=== PATIENT | female | born 1985 | race Caucasian/White ===

== ENCOUNTER 2021-07-24 19:53 | Emergency (ER) | payer OTHER, SELFPAY ==
--- NOTE | ~2021-07-24 | CT_ITS ---
CT HEAD WITHOUT IV CONTRAST CT MAXILLOFACIAL WITHOUT IV CONTRAST INDICATION: Pain status post trauma COMPARISON: None TECHNIQUE: Multidetector CT acquisitions of the head, maxillofacial region obtained without IV contrast. Multiplanar reformats were acquired and utilized for image interpretation. DLP: 760 and 622 mGy-cm FINDINGS: HEAD: There is no intracranial hemorrhage or extra-axial fluid collection. The ventricles are unremarkable without hydrocephalus. No midline shift or mass effect. Ny to white matter differentiation is diffusely maintained without evidence of an evolved acute territorial infarct. The basilar cisterns are preserved. No soft tissue or osseous abnormality. The mastoid air cells and paranasal sinuses are well-aerated. MAXILLOFACIAL: The mandible, maxilla, pterygoid plates, nasal bones, zygomatic arches, paranasal sinus umana, and bony orbits are intact. No acute osseous abnormality within the maxillofacial region. The paranasal sinuses and mastoid air cells remain well-aerated. The globes and extra-ocular musculature is intact. No significant soft tissue findings. CT/CT facial bones wo con IMPRESSION: 1. No acute intracranial abnormality. 2. No acute osseous abnormality within the maxillofacial region.
--- NOTE | ~2021-07-24 | CT_ITS ---
CT HEAD WITHOUT IV CONTRAST CT MAXILLOFACIAL WITHOUT IV CONTRAST INDICATION: Pain status post trauma COMPARISON: None TECHNIQUE: Multidetector CT acquisitions of the head, maxillofacial region obtained without IV contrast. Multiplanar reformats were acquired and utilized for image interpretation. DLP: 760 and 622 mGy-cm FINDINGS: HEAD: There is no intracranial hemorrhage or extra-axial fluid collection. The ventricles are unremarkable without hydrocephalus. No midline shift or mass effect. Ny to white matter differentiation is diffusely maintained without evidence of an evolved acute territorial infarct. The basilar cisterns are preserved. No soft tissue or osseous abnormality. The mastoid air cells and paranasal sinuses are well-aerated. MAXILLOFACIAL: The mandible, maxilla, pterygoid plates, nasal bones, zygomatic arches, paranasal sinus umana, and bony orbits are intact. No acute osseous abnormality within the maxillofacial region. The paranasal sinuses and mastoid air cells remain well-aerated. The globes and extra-ocular musculature is intact. No significant soft tissue findings. CT/CT head/brain wo con IMPRESSION: 1. No acute intracranial abnormality. 2. No acute osseous abnormality within the maxillofacial region.
[2021-07-24 19:57] VITALS: BP 129/84; PULSE 91; RESP 15; TEMP 36.6; O2SAT 99; BMI 31.8
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
[2021-07-24] MEDS: Ondansetron ODT 4 MG TAB.RAPDIS TRANSLINGU (21:24)
[2021-07-24] MEDS: Ibuprofen 600 MG TABLET PO (21:24)
[2021-07-24 21:25] LABS: UPreg QC Valid YES; Urine Pregnancy NEGATIVE (NEGATIVE)
== END 2021-07-24 22:58 | disposition home or self-care (01) ==
PROVIDERS: Emergency Provider Emergency Medicine
DX: S06.0X9A Concussion with loss of consciousness of unspecified duration, initial encounter (principal); S00.83XA Contusion of other part of head, initial encounter; Y29.XXXA Contact with blunt object, undetermined intent, initial encounter; Y93.9 Activity, unspecified; Y92.9 Unspecified place or not applicable; Y99.9 Unspecified external cause status; Z79.899 Other long term (current) drug therapy
CPT/HCPCS: 70450; 70486; 81025; 99283; 99284

== ENCOUNTER 2021-08-28 19:40 | Emergency (ER) | payer OTHER, SELFPAY ==
[2021-08-28 20:33] VITALS: BP 127/77; PULSE 82; RESP 16; TEMP 36.6; O2SAT 98; BMI 32.9
--- NOTE | 2021-08-28 21:37 | ED.BACK ---
HPI - Back Pain/Injury General Chief Complaint: Back Pain/Injury Stated Complaint: lower back pain Time Seen by Provider: 08/28/21 21:36 Source: patient Mode of arrival: ambulatory Limitations: no limitations History of Present Illness HPI Narrative: Patient with No significant past medical history noticed pain on the right lower back all of a sudden 2 days ago no injury no urinary symptoms no nausea or vomiting pain radiates to the upper back of the thigh no paresthesia no motor weakness Related Data Previous Rx's Medication Instructions Recorded cyclobenzaprine 10 mg tablet 10 mg PO Q8H #20 tabs 08/28/21 oxycodone-acetaminophen 5 mg-325 1 tab PO Q6H PRN pain #20 tabs 08/28/21 mg tablet (Percocet) Allergies Allergy/AdvReac Type Severity Reaction Status Date / Time No Known Allergies Allergy Verified 08/28/21 20:36 [No Known Allergies*] Review of Systems Review of Systems: Yes all other systems are reviewed and are negative [facility] Social History Social History Advance Directives: No Advance Directives Information Provided: No Physical Exam Vital Signs: Vital Signs: Last Vital Signs Temp 98 F 08/28/21 20:33 Pulse 82 08/28/21 20:33 Resp 16 08/28/21 20:33 BP 127/77 08/28/21 20:33 Pulse Ox 98 08/28/21 20:33 O2 Del Method 08/28/21 20:33 BMI result Body Mass Index 32.9 Appearance: Alert. Oriented X3. No acute distress. CVS: Normal heart rate and rhythm. Pulses normal. Respiratory: No respiratory distress. Equal air entry bilateral, no wheezing/rales/rhonchi Abdomen: Soft and nontender. Bowel sounds are present, no mass palpable, no CVA tenderness Skin: Skin warm and dry. Normal skin color. Normal skin turgor. Extremities: No lower extremity edema. No calf tenderness back: Right sciatic notch tenderness SLR negative no paresthesias no motor weakness, right lumbar muscle spasm Neuro: Oriented X 3. No motor deficit. No sensory deficit. MDM - Back Pain/Injury MDM Narrative Medical decision making narrative: Patient with right piriformis muscle syndrome patient advised to do piriformis exercises pain medication and muscle relaxants Discharge Plan Discharge Clinical Impression: Piriformis syndrome of right side Patient Disposition: Home, Self-Care Instructions: Piriformis Syndrome (ED) Additional Instructions: Do the exercise as advised for muscle spasm Pain medication and muscle relaxant as prescribed Follow with PCP if not better Prescriptions: New cyclobenzaprine 10 mg tablet 10 mg PO Q8H Qty: 20 0RF oxycodone-acetaminophen [Percocet] 5-325 mg tablet 1 tab PO Q6H PRN (Reason: pain) Qty: 20 0RF Rx Instructions: Partial Fill upon patient request. Stand Alone Forms: Work/School Release
[2021-08-28 22:04] VITALS: BP 120/65; PULSE 71; RESP 18; TEMP 36.8; O2SAT 98
[2021-08-28] MEDS: Cyclobenzaprine HCl 10 MG TABLET PO (22:44)
[2021-08-28] MEDS: oxyCODONE HCl Immed Release 5 MG TABLET 10 MG PO (22:44)
== END 2021-08-28 22:51 | disposition home or self-care (01) ==
PROVIDERS: Emergency Provider Internal Medicine; PCP Internal Medicine
DX: G57.01 Lesion of sciatic nerve, right lower limb (principal)
CPT/HCPCS: 99283; 99284

== ENCOUNTER 2021-11-02 12:10 | Emergency (ER) | payer OTHER, SELFPAY ==
--- NOTE | ~2021-11-02 | US_ITS ---
EXAMINATION: US OBSTETRICAL ULTRASOUND CLINICAL INFORMATION: Elevated hCG. Age 36. COMPARISON: None. LMP: Unknown. TECHNIQUE: Ultrasound of the maternal pelvis is performed using transabdominal and transvaginal transducers. Transvaginal imaging is performed due to inadequate visualization transabdominally. M-mode Doppler is also performed. FINDINGS: There is a single intrauterine gestational sac. There is a small subchorionic hematoma on the right measuring only 0.8 x 1.0 x 0.8 cm. There is questionable early pole 0.3 cm (6 week 0 days). No cardiac activity at this time. Large yolk sac 10 mm (inner to inner) versus normal early chorioamnionic separation. MSD (mean sac dimension): 1.58 cm (6 weeks 3 days +/- 4 days). MATERNAL ADNEXA: Both maternal ovaries are demonstrated. There is no maternal adnexal mass or pelvic ascites. The right maternal ovary measures 3.0 x 1.8 x 1.9 cm. The left maternal ovary measures 3.4 x 1.5 x 2.1 cm. US/US OB pelvic and transvaginal IMPRESSION: -Single intrauterine gestational sac, MSD 1.58 cm (6 weeks, 3 days size). Small subchorionic hematoma just under 1 cm. -Question early pole 0.3 cm (6 weeks 0 days size). No embryo cardiac activity noted at this time. Large yolk sac vs. normal early chorioamnionic separation. -Recommend follow-up beta hCG and follow-up ultrasound to confirm normal developing .
[2021-11-02 12:42] VITALS: BP 114/67; PULSE 70; RESP 16; TEMP 36.6; O2SAT 99; BMI 32.9
[2021-11-02 12:55] LABS: MANUAL DIFF FLAG NO
[2021-11-02 12:59] LABS: Basophils Absolute Auto 0.1 X10*3/uL (0.0-0.2); Basophils Percent Auto 0.7 % (0-2); Eosinophils Absolute Auto 0.3 X10*3/uL (0.0-0.4); Eosinophils Percent Auto 3.9 % (0-4); Hematocrit 37.9 % (37.0-47.0); Hemoglobin 13.2 g/dl (12.0-16.0); Imm Gran Abs Auto 0.01 X10*3/uL (0.00-0.03); Imm Gran Pct Auto 0.1 % (0.0-0.4); Lymphocytes Absolute Auto 2.1 X10*3/uL (1.2-4.9); Mean Corpuscular HGB Conc 34.8 g/dl (31.0-35.0); Mean Corpuscular Hemoglobin 32.9 pg (27.0-33.0); Mean Corpuscular Volume 94.5 fL (80.0-98.0); Mean Platelet Volume 11.3 fL (9.4-12.3); Monocytes Absolute Auto 0.5 X10*3/uL (0.1-1.2); Monocytes Percent Auto 6.2 % (2-11); Neutrophils Absolute Auto 4.4 x10*3/uL (2.0-8.3); Neutrophils Percent Auto 60.1 % (45-73); Platelet Count 191 X10*3/uL (160-400); Red Blood Count 4.01 X10*6/uL (4.20-5.50); Red Cell Distribution Width 11.6 % (11.0-16.0); White Blood Count 7.3 X10*3/uL (4.8-10.8)
[2021-11-02 13:19] LABS: HCG Quantitative 14266 mIU/mL
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
== END 2021-11-02 17:09 | disposition left against medical advice (07) ==
PROVIDERS: Emergency Provider Emergency Medicine
DX: O20.0 Threatened abortion (principal); Z3A.01 Less than 8 weeks gestation of pregnancy; O99.331 Smoking (tobacco) complicating pregnancy, first trimester; F17.200 Nicotine dependence, unspecified, uncomplicated
CPT/HCPCS: 36415; 76801; 76817; 84702; 85025; 86900; 86901; 99281; 99283; 99284

== ENCOUNTER 2021-11-02 17:35 | Emergency (ER) | payer OTHER, SELFPAY ==
[2021-11-02 18:18] VITALS: BP 127/80; PULSE 71; RESP 18; TEMP 36.7; O2SAT 98; BMI 31.8
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
[2021-11-02] MEDS: Acetaminophen 325 MG TABLET 650 MG PO (20:15)
== END 2021-11-02 20:50 | disposition home or self-care (01) ==
PROVIDERS: Emergency Provider Emergency Medicine
DX: O20.0 Threatened abortion (principal); Z3A.01 Less than 8 weeks gestation of pregnancy
CPT/HCPCS: 86900; 86901; 99283

== ENCOUNTER 2021-11-04 12:18 | Outpatient (REF) | payer OTHER, SELFPAY ==
[2021-11-04 13:13] LABS: Estimated Average Glucose 94 mg/dL; Hemoglobin A1c % 4.9 %
[2021-11-04 13:31] LABS: HCG Quantitative 14293 mIU/mL
[2021-11-05 03:03] LABS: CT PCR NOT DETECTED (Not Detect.); NG PCR NOT DETECTED (Not Detect.)
[2021-11-05 09:45] LABS: BV Int Neg Control Negative (Negative); BV Int Pos Control Positive (Positive)
== END 2021-11-04 12:19 | disposition home or self-care (01) ==
LOC: HO.LAB 12:18
PROVIDERS: Advanced Practice Midwife; Emergency Medicine; Visit Provider Obstetrics & Gynecology
DX: Z11.3 Encounter for screening for infections with a predominantly sexual mode of transmission (principal); O20.0 Threatened abortion
CPT/HCPCS: 36415; 83036; 84702; 87480; 87491; 87510; 87591; 87660; 99202

== ENCOUNTER 2021-11-07 14:33 | Outpatient (REF) | payer OTHER, SELFPAY ==
[2021-11-07 15:21] LABS: HCG Quantitative 8613 mIU/mL
== END 2021-11-07 14:34 | disposition home or self-care (01) ==
LOC: HO.LAB 14:33
PROVIDERS: Visit Provider Advanced Practice Midwife
DX: O20.0 Threatened abortion (principal)
CPT/HCPCS: 36415; 84702; 99212

== ENCOUNTER 2021-11-11 10:14 | Outpatient (REF) | payer OTHER, SELFPAY ==
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
== END 2021-11-11 10:15 | disposition home or self-care (01) ==
LOC: HO.US 10:14
PROVIDERS: Visit Provider Advanced Practice Midwife
DX: O20.0 Threatened abortion (principal)
CPT/HCPCS: 76801; 99212

== ENCOUNTER 2022-12-03 18:04 | Emergency (ER) | payer OTHER, SELFPAY ==
--- NOTE | ~2022-12-03 | XR_ITS ---
Examination: XR ankle RT 2V, XR foot RT 2V Indication: pain. fracture Comparison: No pertinent prior studies are currently available for comparison. Technique: 2 views of the right ankle and 3 views of the right foot obtained Findings: Diffuse soft tissue swelling is seen about the ankle. Underlying bony structures appear to be intact with no acute fracture or dislocation. Ankle mortise is normally aligned. No acute fracture or dislocation seen in the foot with minimal degenerative changes at the first MTP joint space. No radiopaque foreign body or soft tissue gas. XR/XR foot RT 2V Impression: Diffuse soft tissue swelling about the ankle but no acute fracture or dislocation.
--- NOTE | ~2022-12-03 | XR_ITS ---
Examination: XR ankle RT 2V, XR foot RT 2V Indication: pain. fracture Comparison: No pertinent prior studies are currently available for comparison. Technique: 2 views of the right ankle and 3 views of the right foot obtained Findings: Diffuse soft tissue swelling is seen about the ankle. Underlying bony structures appear to be intact with no acute fracture or dislocation. Ankle mortise is normally aligned. No acute fracture or dislocation seen in the foot with minimal degenerative changes at the first MTP joint space. No radiopaque foreign body or soft tissue gas. XR/XR ankle RT 2V Impression: Diffuse soft tissue swelling about the ankle but no acute fracture or dislocation.
[2022-12-03 18:17] VITALS: BP 113/73; PULSE 18; RESP 18; TEMP 36.6; O2SAT 98; BMI 35.4
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
[2022-12-03] MEDS: Acetaminophen 325 MG TABLET 975 MG PO (18:30)
[2022-12-03] MEDS: Ibuprofen 600 MG TABLET PO (20:45)
== END 2022-12-03 22:34 | disposition home or self-care (01) ==
PROVIDERS: Emergency Provider Emergency Medicine Emergency Medical Services
DX: S93.401A Sprain of unspecified ligament of right ankle, initial encounter (principal); V17.4XXA Pedal cycle driver injured in collision with fixed or stationary object in traffic accident, initial encounter; Y93.9 Activity, unspecified; Y92.410 Unspecified street and highway as the place of occurrence of the external cause; Y99.9 Unspecified external cause status; Z79.899 Other long term (current) drug therapy
CPT/HCPCS: 29515; 73600; 73620; 99284

== ENCOUNTER 2023-04-19 17:26 | Emergency (ER) | payer OTHER, SELFPAY ==
--- NOTE | ~2023-04-19 | XR_ITS ---
EXAMINATION: Thoracic and lumbar spine: CLINICAL INDICATIONS: Pain. COMPARISON: None. TECHNIQUE: 3 views thoracic spine. 3 views dorsal spine. FINDINGS: Dorsal spine: There is maintained thoracic kyphosis. There is minimal dextroscoliosis the vertebral heights, alignment and disc heights are normal. There is no visible acute fracture, lytic or sclerotic process seen. The soft tissues are normal. Lumbar spine: There is mild straightening of lumbar lordosis. The vertebral heights and alignment and disc heights are preserved. No visible acute fracture, dislocation or lytic process seen. No aggressive lytic or sclerotic process. Seen. SI joints are symmetrical and normal. XR/XR lumbar spine 2-3V IMPRESSION: 1. Minimal dextroscoliosis dorsal spine. No visible acute fracture, lytic or sclerotic process seen. 2. Mild straightening of lumbar lordosis likely spasm.
--- NOTE | ~2023-04-19 | XR_ITS ---
EXAMINATION: Thoracic and lumbar spine: CLINICAL INDICATIONS: Pain. COMPARISON: None. TECHNIQUE: 3 views thoracic spine. 3 views dorsal spine. FINDINGS: Dorsal spine: There is maintained thoracic kyphosis. There is minimal dextroscoliosis the vertebral heights, alignment and disc heights are normal. There is no visible acute fracture, lytic or sclerotic process seen. The soft tissues are normal. Lumbar spine: There is mild straightening of lumbar lordosis. The vertebral heights and alignment and disc heights are preserved. No visible acute fracture, dislocation or lytic process seen. No aggressive lytic or sclerotic process. Seen. SI joints are symmetrical and normal. XR/XR thoracic spine 2V IMPRESSION: 1. Minimal dextroscoliosis dorsal spine. No visible acute fracture, lytic or sclerotic process seen. 2. Mild straightening of lumbar lordosis likely spasm.
[2023-04-19 17:36] VITALS: BP 136/89; PULSE 83; RESP 18; TEMP 36.8; O2SAT 95; BMI 36.3
--- NOTE | 2023-04-19 17:37 | ED_ITS ---
HPI - General Adult General Chief complaint: Back Pain/Injury Stated complaint: fell, spine/ lower back pain Time Seen by Provider: 04/19/23 17:56 Source: patient Mode of arrival: ambulatory Limitations: no limitations History of Present Illness HPI narrative: Patient is a 37-year-old female who presents emergency department for evaluation after mechanical trip and fall. Reports that her puppy was running between her legs when she tripped falling backwards onto her buttock. She expresses pain to the right lower back radiating to her buttock. Denies fevers, chills, burning with micturition, urinary frequency/urgency/hesitancy, bladder or bowel dysfunction, numbness or tingling of the perineum or bilateral legs. Denies any recent surgical procedures, any known immune compromising conditions, personal history of cancer, or IV drug usage. Related Data Home Medications Medication Instructions Recorded Confirmed acetaminophen 325 mg capsule 650 mg PO Q6H PRN 11/04/21 11/04/21 (Tylenol) Previous Rx's Medication Instructions Recorded cyclobenzaprine 10 mg tablet 10 mg PO Q8H #20 tabs 08/28/21 clotrimazole 1 % vaginal cream 1 appful vaginal BEDTIME 7 days 11/07/21 (Clotrimazole-7) #45 grams metronidazole 500 mg tablet 500 mg PO BID 7 days #14 tabs 11/07/21 ibuprofen 600 mg tablet 600 mg PO Q8H PRN pain #20 tabs 12/03/22 cyclobenzaprine 10 mg tablet 10 mg PO TID PRN muscle spasm #20 04/19/23 tabs Allergies Allergy/AdvReac Type Severity Reaction Status Date / Time No Known Allergies Allergy Verified 11/11/21 11:14 [No Known Allergies*] Review of Systems Review of Systems: Yes all other systems are reviewed and are negative [facility] Past Medical History Attestation statement: The following information was validated with the patient. Source: old records reviewed Medical History Panic attack Depression Anxiety Surgical History H/O knee surgery Social History Social History Patient Tobacco Use Status: Current someday Tobacco user Substance Use Type: Marijuana Advance Directives: No Advance Directives Information Provided: No Physical Exam ED Vital Signs: Vital Signs - 24 hr 04/19/23 17:36 Temperature 98.3 F Pulse Rate 83 Respiratory Rate 18 Blood Pressure 136/89 Pulse Oximetry 95 Oxygen Delivery Method Room Air BMI result Body Mass Index 36.3 Appearance: Alert.?Oriented to person, place and time. No acute distress.?Normal affect. Eyes: Pupils equal, round and reactive to light.? ENT: Pharynx normal.?? Neck: Normal inspection.? Neck supple.?? CVS: Heart sounds normal. Normal heart rate and rhythm.? Pulses normal; bilateral radial pulses 2+, bilateral posterior tibial/dorsalis pedis pulses 2+. ? Respiratory: No respiratory distress.? Lung sounds clear to auscultation bilaterally?? Abdomen: Soft and non-tender. Normoactive bowel sounds. No pulsatile mass.?? Skin: Skin warm and dry.? Normal skin color.? Normal skin turgor.?? Extremities: No lower extremity edema.? No calf ttp? Back: + mild paraspinal muscular tenderness from right lumbar region to coccyx. No CVA tenderness. No midline spinal tenderness, step-off's, or deformity. Full ROM intact in bilateral lower extremities. Straight leg test positive on right; Straight leg test negative on left. No rashes, lesions, areas of induration or fluctuance, or signs of infection noted., Neuro: Moves all extremities spontaneously. 5/5 strength in hip extension/flexion, abduction, adduction. Sensation to light touch intact bilaterally. Patellar and Achilles reflex 2+ bilaterally. No ataxia, gait normal and steady.. No focal neuro deficits. Course Course Course Narrative: RME- 37-year-old female presents for evaluation of back pain after falling he reports just prior to arrival. Plan for x-rays. Medications Administered Discontinued Medications Generic Name Dose Route Start Last Admin Trade Name Freq PRN Reason Stop Dose Admin Cyclobenzaprine HCl 10 mg 04/19/23 18:14 04/19/23 18:30 Cyclobenzaprine Hcl 10 Mg Tablet PO 04/19/23 18:15 10 mg ONCE ONE Administration Ketorolac Tromethamine 30 mg 04/19/23 18:14 04/19/23 18:30 Ketorolac Tromethamine 30 Mg/Ml Vial IM 04/19/23 18:15 30 mg ONCE ONE Administration Ondansetron HCl 4 mg 04/19/23 18:14 04/19/23 18:29 Ondansetron Odt 4 Mg Tab.Za CARMONA 04/19/23 18:15 4 mg ONCE ONE Administration Medical Decision Making Medical Decision Making [facility] Narrative: Patient is a 37-year-old female who presents emergency department for evaluation right lower back pain s/p mechanical trip and fall as per HPI. Is notable tenderness to the right lumbar paraspinal muscle region positive straight leg test on the right pain radiating into the buttock. Extremities neurovascularly intact distally. Palpable step-offs or deformities. At this time suspect pain to be most consistent with muscular nature/contusion, XR obtained to exclude fracture/subluxation, and is without acute fracture subluxation, discussed with patient cannot completely exclude herniated disc. On neurological exam there are no deficits. Not consistent with spinal infection, epidural abscess, AAA, epidural abscess, or dissection. No high risk past medical history including incontinence, fever, immunosuppression, recent surgery or lumbar puncture, coagulopathy, significant trauma, recent unintentional weight loss, pulsatile mass, history of cancer, history of TB, history of IV drug use that would warrant MRI or CT. Not consistent with ectopic , pyelonephritis, urinary tract infection, renal calculi, pelvic infection, appendicitis, diverticulitis. On exam no concern for cauda equina syndrome. Plan for discharge home with prescription for cyclobenzaprine, and follow-up with primary care provider, and patient agreed with plan. Differential Diagnosis Differential Diagnoses: The differential diagnosis associated with the presentation includes ( see narrative above) Admission/Observation Consideration of admission/observation: Escalation of care including admission/observation considered ( see narrative above) Independent Interpretation I performed an independent interpretation of an: Plain X-Ray (A personally interpreted XR imaging and agree with radiologist impression) Radiology Impression Discussion of test interpretation with radiology: I have reviewed the radiologist's reading. Radiologist Impression: XR/XR thoracic spine 2V IMPRESSION: 1. Minimal dextroscoliosis dorsal spine. No visible acute fracture, lytic or sclerotic process seen. 2. Mild straightening of lumbar lordosis likely spasm. Independent Historian Clinical information obtained from an independent historian. History obtained from or confirmed by: Spouse (Present who confirms history) External Record Review External record reviewed: Outpatient record Prescription Management I considered prescription management with: Pain Medication Discharge Plan Discharge Clinical Impression: Strain of lumbar region Patient Disposition: Home, Self-Care Instructions: Acute Low Back Pain (ED), Lower Back Exercises (ED) Additional Instructions: You can take ibuprofen 200 mg, 3 tablets (600mg) every 6-8 hours as needed for pain, in addition to Tylenol 500 mg, 2 tablets (1,000mg) every 4-6 hours as needed for pain, but not to exceed 3 doses daily (3,000mg).? I have sent a prescription for cyclobenzaprine/Flexeril to your pharmacy. This is a muscle relaxant, may make you drowsy. You should not drive, drink alcohol, or work while taking this medication. Please contact your primary care provider to schedule a follow-up visit for persistent symptoms. Return back to emergency department any new worsening symptoms or concerns. Prescriptions: New cyclobenzaprine 10 mg tablet 10 mg PO TID PRN (Reason: muscle spasm) Qty: 20 0RF No Action metronidazole 500 mg tablet 500 mg PO BID 7 Days Qty: 14 0RF clotrimazole [Clotrimazole-7] 1 % cream 1 appful vaginal BEDTIME 7 Days Qty: 45 0RF cyclobenzaprine 10 mg tablet 10 mg PO Q8H Qty: 20 0RF ibuprofen 600 mg tablet 600 mg PO Q8H PRN (Reason: pain) Qty: 20 0RF acetaminophen [Tylenol] 325 mg capsule 650 mg PO Q6H PRN Referrals: Physician,Unknown J [Primary Care Provider] -
[2023-04-19] MEDS: Ondansetron ODT 4 MG TAB.RAPDIS TRANSLINGU (18:29)
[2023-04-19] MEDS: Ketorolac Tromethamine 30 MG/ML VIAL IM (18:30)
[2023-04-19] MEDS: Cyclobenzaprine HCl 10 MG TABLET PO (18:30)
[2023-04-19 19:35] VITALS: BP 134/88; PULSE 81; RESP 20; TEMP 36.6; O2SAT 98
== END 2023-04-19 19:51 | disposition home or self-care (01) ==
PROVIDERS: Emergency Provider Student in an Organized Health Care Education/Training Program
DX: S39.012A Strain of muscle, fascia and tendon of lower back, initial encounter (principal); W01.0XXA Fall on same level from slipping, tripping and stumbling without subsequent striking against object, initial encounter; Y93.89 Activity, other specified; Y92.039 Unspecified place in apartment as the place of occurrence of the external cause; Y99.9 Unspecified external cause status
CPT/HCPCS: 72070; 72100; 96372; 99283; 99284; J1885

== ENCOUNTER 2023-05-24 16:28 | Emergency (ER) | payer SELFPAY ==
--- NOTE | ~2023-05-24 | US_ITS ---
EXAMINATION: US OBSTETRICAL ULTRASOUND CLINICAL INFORMATION: Positive test COMPARISON: None available. LMP: 04/11/2023. Gestational age by maternal dates is 6 weeks 1 day. Estimated date of delivery by maternal dates is 01/16/2024. TECHNIQUE: Transabdominal ultrasound was performed FINDINGS: There is a single intrauterine gestational sac with visible yolk sac, embryo/fetus, and cardiac activity. There is no significant subchorionic hemorrhage or hematoma. HR: 150 beats per minute. CRL (crown rump length): 0.98 cm (7 weeks 1 day +/- 4 days). ALTHEA (estimated date of delivery): 01/09/2024 +/- 4 days. MATERNAL ADNEXA: The right maternal ovary measures 2.8 x 2.8 x 1.7 cm. There is a 1.6 x 1.1 x 1.0 cm corpus luteum cyst The left maternal ovary measures 2.1 x 2.0 x 1.9 cm. There is no significant maternal adnexal mass. No maternal pelvic ascites. US/US OB <= 14 weeks fetus IMPRESSION: 1. Single intrauterine gestation with ultrasound gestational age of 7 weeks 1 day +/- 4 days. 2. Estimated date of delivery is 01/09/2024 +/- 4 days. 3. No maternal adnexal mass or pelvic ascites.
[2023-05-24 16:55] VITALS: BP 127/81; PULSE 87; RESP 16; TEMP 36.2; O2SAT 100; BMI 38.5
--- NOTE | 2023-05-24 17:03 | ED_ITS ---
HPI - General Chief complaint: Vaginal Bleeding Stated complaint: ?miscarriage,pressure, vaginal spotting Time Seen by Provider: 05/24/23 20:45 Source: patient Mode of arrival: ambulatory Limitations: no limitations History of Present Illness HPI Narrative: Patient comes to the emergency room stating that she is , and today complaining of pinkish mucousy vaginal discharge and lower abdominal pressure. Patient denies URI or UTI symptoms. Patient denies bright red blood vaginal bleeding. Patient is currently . Related Data Home Medications Medication Instructions Recorded Confirmed acetaminophen 325 mg capsule 650 mg PO Q6H PRN 11/04/21 11/04/21 (Tylenol) Previous Rx's Medication Instructions Recorded cyclobenzaprine 10 mg tablet 10 mg PO Q8H #20 tabs 08/28/21 clotrimazole 1 % vaginal cream 1 appful vaginal BEDTIME 7 days 11/07/21 (Clotrimazole-7) #45 grams metronidazole 500 mg tablet 500 mg PO BID 7 days #14 tabs 11/07/21 ibuprofen 600 mg tablet 600 mg PO Q8H PRN pain #20 tabs 12/03/22 cyclobenzaprine 10 mg tablet 10 mg PO TID PRN muscle spasm #20 04/19/23 tabs Allergies Allergy/AdvReac Type Severity Reaction Status Date / Time No Known Allergies Allergy Verified 11/11/21 11:14 [No Known Allergies*] Review of Systems 2 Review of Systems: Constitutional : No Weight loss, No Fever, No Chills, No Night Sweats, No Fatigue, No Malaise ENT/Mouth : No Hearing loss, No Ear Pain, No Nasal Congestion, No Sinus Pain, No Hoarseness, No sore throat, No Rhinorrhea, No Swallowing Difficulty Eyes: No Eye Pain, No Swelling, No Redness, No Foreign Body, No Discharge, No Vision Changes Cardiovascular : No Chest Pain, No SOB, No Dyspnea on Exertion, No Orthopnea, No Edema, No Palpitations Respiratory : No Cough, No Sputum, No Wheezing, No Smoke Exposure, No Dyspnea Gastrointestinal : No Nausea, No Vomiting, No Diarrhea, No Constipation, No abdominal Pain, No Hematochezia, No Melena Genitourinary : Complaining of pelvic pressure, pinkish vaginal discharge, No Dysuria, No Urinary Frequency, No Hematuria, No Urinary Incontinence, No Urgency, No Flank Pain, No Urinary Flow Changes, No Hesitancy Musculoskeletal : No joint pain, No Myalgias, No Joint Swelling Skin : No Skin Lesions, No rash Neuro : No Weakness, No Numbness, No Paresthesias, No Loss of Consciousness, No Dizziness, No Headache Psych : No Anxiety/Panic, No Depression, No SI/HI/AH/VH, No Social Issues, Heme/Lymph: No Bruising, No Bleeding,No Lymphadenopathy Endocrine : No Polyuria, No Polydipsia, No Temperature Intolerance [facility] Past Medical History Medical History Panic attack Depression Anxiety Surgical History H/O knee surgery Social History Social History Patient Tobacco Use Status: Current someday Tobacco user Substance Use Type: Marijuana Advance Directives: No Advance Directives Information Provided: No Physical Exam 2 Vital Signs: Vital Signs: Last Vital Signs Temp 98.9 F 05/24/23 21:58 Pulse 74 05/24/23 21:58 Resp 20 05/24/23 21:58 BP 119/66 05/24/23 21:58 Pulse Ox 99 05/24/23 21:58 O2 Del Method Room Air 05/24/23 21:58 BMI result Body Mass Index 38.5 Const: Other: Appearance: Alert. Oriented X3. No acute distress. Eyes: Pupils equal, round and reactive to light. ENT: Pharynx normal. Neck: Normal inspection. Neck supple. No lymph nodes noted. No crepitus CVS: Normal heart rate and rhythm. Pulses normal. Normal S1 and S2 Respiratory: No respiratory distress. Breath sounds normal. No Wheezing. No rales Abdomen: Soft and nontender. No rigidity. No distention. : Cervix is closed, no obvious discharge, no blood present at all Skin: Skin warm and dry. Normal skin color. Normal skin turgor. Extremities: No lower extremity edema. No Lacerations. No Rash Neuro: Oriented X 3. No motor deficit. No sensory deficit. Moving all extremities. No slurred speech. CN 2 through 12 grossly intact Psych: calm, cooperative, normal affect Course Course Course Narrative: This is a rapid medical exam: Additional HPI, ROS, PE not included below will be deferred to primary provider. Patient is a 39-year-old presenting to the ED with complaint of light pink mucous-like vaginal bleeding, states is small amount, and lower abdominal cramping which started today. LMP started 04/01/23. Was feeling unwell Sunday so she took a test which was positive. States symptoms feel like previous miscarriages. Plan: labs, UA, u/s Medical Decision Making Medical Decision Making [facility] Narrative: -I discussed the labs with the patient. My interpretation of labs, hematology and chemistry within normal limits, hCG 73,858. Urinalysis negative for UTI -my interpretation of ultrasound: Intrauterine present -patient will follow-up with her OB Gyne, patient would like to follow-up with Dr. Monson's group -patient has history of recurrent miscarriages for unclear reason. I discussed with the patient that it may be worth speaking with her primary care physician and getting tested for clotting disorders such as factor 5 Leiden mutation, prothrombin gene mutation, antiphospholipid syndrome, protein C and S deficiencies -I asked the patient what she has been taking for pain at home, patient has been taking Excedrin. I discussed with the patient that exiting contains aspirin and is contraindicated in . I discussed with the patient that the only acceptable [id number] medication during is Tylenol/acetaminophen -swabs have been sent for STD check Differential Diagnosis Differential Diagnoses: The differential diagnosis associated with the presentation includes (Threatened , UTI, ectopic ) Admission/Observation Consideration of admission/observation: Escalation of care including admission/observation considered (Given patient's initial presentation and symptoms, admission/transfer was considered) Lab Data [facility] Lab Attestation statement: I reviewed the patient's lab results. 05/24/23 19:27 05/24/23 19:27 Labs: Lab Results 05/24/23 05/24/23 Range/Units 19:27 21:37 WBC 11.0 H (4.8-10.8) X10*3/uL RBC 4.37 (4.20-5.50) X10*6/uL Hgb 13.6 (12.0-16.0) g/dl Hct 39.7 (37.0-47.0) % MCV 90.8 (80.0-98.0) fL MCH 31.1 (27.0-33.0) pg MCHC 34.3 (31.0-35.0) g/dl RDW 12.8 (11.0-16.0) % Plt Count 228 (160-400) X10*3/uL MPV 10.7 (9.4-12.3) fL Immature Gran % (Auto) 0.3 (0.0-0.4) % Neut % (Auto) 64.4 (45-73) % Lymph % (Auto) 26.4 (20-40) % Dunn % (Auto) 5.1 (2-11) % Eos % (Auto) 3.2 (0-4) % Baso % (Auto) 0.6 (0-2) % Lymph # (Auto) 2.9 (1.2-4.9) X10*3/uL Dunn # (Auto) 0.6 (0.1-1.2) X10*3/uL Eos # (Auto) 0.4 (0.0-0.4) X10*3/uL Baso # (Auto) 0.1 (0.0-0.2) X10*3/uL Abs Immat Gran (auto) 0.03 (0.00-0.03) X10*3/uL Absolute Neuts (auto) 7.1 (2.0-8.3) x10*3/uL Absolute Nucleated RBC 0.000 (0.0-0.012) X10*3/uL Nucleated RBC % (auto) 0.0 (0.0-0.2) /100WBC PT 12.1 (11.1-13.3) SEC INR 1.0 (0.9-1.1) Sodium 139 (135-145) mmol/L Potassium 4.2 (3.3-5.1) mmol/L Chloride 106 (96-108) mmol/L Carbon Dioxide 23 (22-29) mmol/L Anion Gap 14 (12-20) BUN 10 (9-16) mg/dL Creatinine 0.71 (0.5-1.4) mg/dL Estim Creat Clear Calc 123.8 Estimated GFR > 60 Random Glucose 82 (60-115) mg/dL Calcium 9.3 (8.4-10.2) mg/dL Total Bilirubin 0.3 (0.0-1.0) mg/dL AST 18 (5-31) U/L ALT 14 (0-31) U/L Alkaline Phosphatase 80 (39-117) U/L Total Protein 7.3 (6.5-8.0) g/dL Albumin 4.0 (3.5-5.0) g/dL Beta HCG, Quant 18035 mIU/mL Urine Color Yellow Urine Appearance Clear Urine pH 6.5 (5.0-9.0) Ur Specific [place] 1.010 (1.005-1.025) Urine Protein Negative (Neg-Trace) mg/dL Urine Glucose (UA) Negative (Negative) mg/dL Urine Ketones Negative (Negative) mg/dL Urine Blood Negative (Negative) Urine Nitrite Negative (Negative) Ur Leukocyte Esterase Negative (Negative) Blood Type A Positive Independent Interpretation I performed an independent interpretation of an: Ultrasound Radiology Impression Discussion of test interpretation with radiology: I have reviewed the radiologist's reading. Radiologist Impression: LMP: 04/11/2023. Gestational age by maternal dates is 6 weeks 1 day. Estimated date of delivery by maternal dates is 01/16/2024. TECHNIQUE: Transabdominal ultrasound was performed FINDINGS: There is a single intrauterine gestational sac with visible yolk sac, embryo/fetus, and cardiac activity. There is no significant subchorionic hemorrhage or hematoma. HR: 150 beats per minute. CRL (crown rump length): 0.98 cm (7 weeks 1 day +/- 4 days). ALTHEA (estimated date of delivery): 01/09/2024 +/- 4 days. MATERNAL ADNEXA: The right maternal ovary measures 2.8 x 2.8 x 1.7 cm. There is a 1.6 x 1.1 x 1.0 cm corpus luteum cyst The left maternal ovary measures 2.1 x 2.0 x 1.9 cm. There is no significant maternal adnexal mass. No maternal pelvic ascites. US/US OB <= 14 weeks fetus IMPRESSION: 1. Single intrauterine gestation with ultrasound gestational age of 7 weeks 1 day +/- 4 days. 2. Estimated date of delivery is 01/09/2024 +/- 4 days. 3. No maternal adnexal mass or pelvic ascites. Critical Care Time Critical Care Time Critical Care Time: Yes Total Critical Care Time: 45 Attestation: I have personally provided critical care time. Time includes review of lab data, radiology results, discussion with consultants, and monitoring for potential decompensation. Intervention performed as documented. Discharge Plan Discharge Clinical Impression: Threatened Patient Disposition: Home, Self-Care Instructions: Threatened Miscarriage (ED) Additional Instructions: Please follow-up with your primary care physician tomorrow. If you have any worsening or new symptoms, please return to the emergency room or call 911. If you have pain, do not take any pain medication other than Tylenol/acetaminophen. Prescriptions: No Action metronidazole 500 mg tablet 500 mg PO BID 7 Days Qty: 14 0RF clotrimazole [Clotrimazole-7] 1 % cream 1 appful vaginal BEDTIME 7 Days Qty: 45 0RF cyclobenzaprine 10 mg tablet 10 mg PO Q8H Qty: 20 0RF ibuprofen 600 mg tablet 600 mg PO Q8H PRN (Reason: pain) Qty: 20 0RF cyclobenzaprine 10 mg tablet 10 mg PO TID PRN (Reason: muscle spasm) Qty: 20 0RF acetaminophen [Tylenol] 325 mg capsule 650 mg PO Q6H PRN Referrals: Terry Monson MD [Physician] - 05/25/23
[2023-05-24 19:32] LABS: MANUAL DIFF FLAG NO
[2023-05-24 19:33] LABS: Basophils Absolute Auto 0.1 X10*3/uL (0.0-0.2); Basophils Percent Auto 0.6 % (0-2); Eosinophils Absolute Auto 0.4 X10*3/uL (0.0-0.4); Eosinophils Percent Auto 3.2 % (0-4); Hematocrit 39.7 % (37.0-47.0); Hemoglobin 13.6 g/dl (12.0-16.0); Imm Gran Abs Auto 0.03 X10*3/uL (0.00-0.03); Imm Gran Pct Auto 0.3 % (0.0-0.4); Lymphocytes Absolute Auto 2.9 X10*3/uL (1.2-4.9); Lymphocytes Percent Auto 26.4 % (20-40); Mean Corpuscular HGB Conc 34.3 g/dl (31.0-35.0); Mean Corpuscular Hemoglobin 31.1 pg (27.0-33.0); Mean Corpuscular Volume 90.8 fL (80.0-98.0); Mean Platelet Volume 10.7 fL (9.4-12.3); Monocytes Absolute Auto 0.6 X10*3/uL (0.1-1.2); Monocytes Percent Auto 5.1 % (2-11); Neutrophils Absolute Auto 7.1 x10*3/uL (2.0-8.3); Neutrophils Percent Auto 64.4 % (45-73); Platelet Count 228 X10*3/uL (160-400); Red Blood Count 4.37 X10*6/uL (4.20-5.50); Red Cell Distribution Width 12.8 % (11.0-16.0)
[2023-05-24 19:38] LABS: Prothrombin Time 12.1 SEC (11.1-13.3)
[2023-05-24 19:49] LABS: Alanine Aminotransferase 14 U/L (0-31); Alkaline Phosphatase 80 U/L (39-117); Anion Gap 14 (12-20); Aspartate Amino Transferase 18 U/L (5-31); Bilirubin Total 0.3 mg/dL (0.0-1.0); Blood Urea Nitrogen 10 mg/dL (9-16); Calcium 9.3 mg/dL (8.4-10.2); Carbon Dioxide 23 mmol/L (22-29); Chloride 106 mmol/L (96-108); Creatinine Clr Calc Pharmacy 123.8; Estimated Glomerular Filt Rate > 60; Glucose Random 82 mg/dL (60-115); Potassium 4.2 mmol/L (3.3-5.1); Sodium 139 mmol/L (135-145); Total Protein 7.3 g/dL (6.5-8.0)
[2023-05-24 21:46] LABS: Appearance Urine Clear; Color Urine Yellow; Glucose Urine UA Negative (Negative); Leukocyte Esterase Urine Negative (Negative); Nitrite Urine Negative (Negative); PH 6.5 (5.0-9.0); Urine Blood Negative (Negative); Urine Ketones Negative (Negative); Urine Protein Negative (Neg-Trace)
[2023-05-24 21:58] VITALS: BP 119/66; PULSE 74; RESP 20; TEMP 37.2; O2SAT 99
[2023-05-25 04:02] LABS: CT PCR NOT DETECTED (Not Detect.); NG PCR NOT DETECTED (Not Detect.)
[2023-05-25 09:51] LABS: BV Int Neg Control Negative (Negative); BV Int Pos Control Positive (Positive)
== END 2023-05-24 22:39 | disposition home or self-care (01) ==
PROVIDERS: Registered Nurse Emergency; Emergency Provider Emergency Medicine
DX: O20.0 Threatened abortion (principal); Z3A.14 14 weeks gestation of pregnancy; Z79.899 Other long term (current) drug therapy
CPT/HCPCS: 0353U; 36415; 76801; 80053; 81003; 84702; 85025; 85610; 86900; 86901; 87480; 87510; 87660; 99283; 99284

== ENCOUNTER 2023-06-22 09:03 | Outpatient (AMB) | payer MEDICAID, SELFPAY ==
[2023-06-22 09:08] VITALS: BP 110/62; BMI 38.1
--- NOTE | 2023-06-22 09:08 | MHC.OFFVIS ---
Intake Vital Signs 06/22/23 09:08 Height 5 ft 3 in Weight 215 lb BMI 38.1 BP 110/62 Intake Visit Reasons: consult Physician Gynecologist Required: No Information Interpreted: clinical only Diet Technician Registered: Diet Technician Registered Present Allergies No Known Allergies [No Known Allergies*] Allergy (Verified 06/22/23 09:09) Medication List - Last Reconciled 06/22/23 by Daphne Uriostegui CNM acetaminophen (Tylenol) 650 mg PO Q6H PRN cholecalciferol (vitamin D3) 25 mcg PO DAILY Is last menstrual period known: Yes (04/06/23) Do you need a note to return to daycare/school/sports/work: No HPI consult HPI Details Patient is here as a consult visit. She discovered her at home and had some spotting in the beginning of May so she was seen in the emergency room on May 23 and had a positive test there and had the confirmed with an ultrasound that said she was 7 weeks and 1 day any ALTHEA of 1023 and a quant in the 78 thousands. She did not have insurance to cover a scheduled follow-up visit so it could not be scheduled until now. She is 37 years old she has had 3 vaginal births the 1st 1 took a long time to get in labor postdates but the other 2 were spontaneous and she delivered normally and she does not remember having any meds and she does not remember having any hypertension or diabetes either. She is overweight. She is now 37 years old about to be 38. This is her 1st for this boyfriend and they are both very happy about it she is not enjoying the symptoms of tender breasts fatigue and nausea and hypersensitivity to smells. 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 During this visit I discussed her dating of the and that now she is about 11 weeks of and she is at somewhat increased risk being 37 years old and overweight. Discussed that towards the end of the she would need extra visits with nonstress tests and ultrasounds to assess well-being. Discussed that while she may have the option of starting care with us because she does have some in increased risk factors she may very well end up needing to be transferred anyway for care to [facility] so her other option would be to start care at [facility] and continue with all of her care in the same place. She thinks that she received care for 2 of her children at [place] and 1 of them through 1 of the [facility] practices from start to finish. So she may check that 1 out I gave her the entire list to call and see who accepts her insurance and try and make an appointment. In the meantime because she is now about 11 weeks and we were able to auscultate heart appropriately today, I am ordering her nuchal translucency ultrasound to be done next week and a panorama blood test because she is over 35 and it increased risk she is interested in finding out the gender, as is he. I have also ordered her vitamins and discussed that because she is over 35 and has some other risk factors we would recommend starting on baby aspirin 2 tablets a day for the duration of the starting at 12 weeks. She will have a tele visit with me after the nuchal translucency ultrasound but will sign for records released today so that this can expedite sending of all records pertaining to her to what ever practice at [facility] she ends up going to and there is no delay. Additionally she does not think she is Rh negative. As well she says she has a history of anxiety and depression and was on medication for both and she did see her primary care provider in the [facility] system and he took her off the medication for depression and limited the dosage of the medicine for anxiety to a p.r.n. use only in the case of a panic attack.. She does not know the name of the medication exactly but will look it up and have it available wherever she seeks care for the entire . In addition she says her primary care provider put in a referral for counseling for her and she has already had an intake over the phone. I applauded her being proactive about this and encouraged her to keep in contact with the counselor throughout the as often it can be when someone finds they are most need. And it is great to have a lifeline. Reviewed that for all emergencies she would need to be seen at [facility]. For now she is going to be seeking care at [facility] and in the interim we will arrange for the nuchal translucency at [facility] and the panoramic with blood work paperwork paperwork to be filled out at the [facility] OBGYN office in the very near future. [facility] Medical History Panic attack Depression Anxiety Surgical History H/O knee surgery Social History Patient Tobacco Use Status: Current someday Tobacco user Substance Use Type: Marijuana Female Reproductive History Menstrual Age of Menarche: 17 Duration of menses: 3-5 days control method: none Total pregnancies: 6 Full term: 3 Physical Exam Vital Signs: Last Vital Signs BP 110/62 06/22/23 09:08 BMI result Body Mass Index 38.1 Const Other: FHT at symphysis pubis audible. Nutritional Appearance: obese Results AMB Test Urine AMB Test Urine Positive Last Edit by Sukhdev Aviles CMA on 06/22/23 09:27 Results Reviewed Results Reviewed: Patient: Yony Cannon MR#: [id number] : 1985 Acct:[id number] Age/Sex: 37 / F ADM Date: 05/24/23 Loc: HO.ED Attending Dr: Ordering Physician: Nalini Cline NP Date of Service: 05/24/23 Procedure(s): US OB <= 14 weeks fetus Accession Number(s): [id number] cc: Physician,Unknown ; Nalini Cline NP~ EXAMINATION: US OBSTETRICAL ULTRASOUND CLINICAL INFORMATION: Positive test COMPARISON: None available. LMP: 04/11/2023. Gestational age by maternal dates is 6 weeks 1 day. Estimated date of delivery by maternal dates is 01/16/2024. TECHNIQUE: Transabdominal ultrasound was performed FINDINGS: There is a single intrauterine gestational sac with visible yolk sac, embryo/fetus, and cardiac activity. There is no significant subchorionic hemorrhage or hematoma. HR: 150 beats per minute. CRL (crown rump length): 0.98 cm (7 weeks 1 day +/- 4 days). ALTHEA (estimated date of delivery): 01/09/2024 +/- 4 days. MATERNAL ADNEXA: The right maternal ovary measures 2.8 x 2.8 x 1.7 cm. There is a 1.6 x 1.1 x 1.0 cm corpus luteum cyst The left maternal ovary measures 2.1 x 2.0 x 1.9 cm. There is no significant maternal adnexal mass. No maternal pelvic ascites. US/US OB <= 14 weeks fetus IMPRESSION: 1. Single intrauterine gestation with ultrasound gestational age of 7 weeks 1 day +/- 4 days. 2. Estimated date of delivery is 01/09/2024 +/- 4 days. 3. No maternal adnexal mass or pelvic ascites. Dictated By: Troy Pineda MD Signed By: <Electronically signed by Troy Pineda MD in OV> 05/24/23 1805 DD/ 1724 TD/TT: Highway Safety Engineer: ИРИНА Assessment & Plan Assessment & Plan (1) Early stage of : Code(s): Z34.90 - Encounter for supervision of normal , unspecified, unspecified trimester (2) AMA (advanced maternal age) multigravida 35+: Code(s): O09.529 - Supervision of elderly multigravida, unspecified trimester (3) Obesity, Class II, BMI 35-39.9: Code(s): E66.9 - Obesity, unspecified Plan Patient is here as a consult visit. She discovered her at home and had some spotting in the beginning of May so she was seen in the emergency room on May 23 and had a positive test there and had the confirmed with an ultrasound that said she was 7 weeks and 1 day any ALTHEA of 1023 and a quant in the 78 thousands. She did not have insurance to cover a scheduled follow-up visit so it could not be scheduled until now. She is 37 years old she has had 3 vaginal births the 1st 1 took a long time to get in labor postdates but the other 2 were spontaneous and she delivered normally and she does not remember having any meds and she does not remember having any hypertension or diabetes either. She is overweight. She is now 37 years old about to be 38. This is her 1st for this boyfriend and they are both very happy about it she is not enjoying the symptoms of tender breasts fatigue and nausea and hypersensitivity to smells. 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 During this visit I discussed her dating of the and that now she is about 11 weeks of and she is at somewhat increased risk being 37 years old and overweight. Discussed that towards the end of the she would need extra visits with nonstress tests and ultrasounds to assess well-being. Discussed that while she may have the option of starting care with us because she does have some in increased risk factors she may very well end up needing to be transferred anyway for care to [facility] so her other option would be to start care at [facility] and continue with all of her care in the same place. She thinks that she received care for 2 of her children at [place] and 1 of them through 1 of the [facility] practices from start to finish. So she may check that 1 out I gave her the entire list to call and see who accepts her insurance and try and make an appointment. In the meantime because she is now about 11 weeks and we were able to auscultate heart appropriately today, I am ordering her nuchal translucency ultrasound to be done next week and a panorama blood test because she is over 35 and it increased risk she is interested in finding out the gender, as is he. I have also ordered her vitamins and discussed that because she is over 35 and has some other risk factors we would recommend starting on baby aspirin 2 tablets a day for the duration of the starting at 12 weeks. She will have a tele visit with me after the nuchal translucency ultrasound but will sign for records released today so that this can expedite sending of all records pertaining to her to what ever practice at [facility] she ends up going to and there is no delay. Additionally she does not think she is Rh negative. As well she says she has a history of anxiety and depression and was on medication for both and she did see her primary care provider in the [facility] and he took her off the medication for depression and limited the dosage of the medicine for anxiety to a p.r.n. use only in the case of a panic attack.. She does not know the name of the medication exactly but will look it up and have it available wherever she seeks care for the entire . In addition she says her primary care provider put in a referral for counseling for her and she has already had an intake over the phone. I applauded her being proactive about this and encouraged her to keep in contact with the counselor throughout the as often it can be when someone finds they are most need. And it is great to have a lifeline. Reviewed that for all emergencies she would need to be seen at [facility]. For now she is going to be seeking care at [facility] and in the interim we will arrange for the nuchal translucency at [facility] and the panoramic with blood work paperwork paperwork to be filled out at the [facility] OBGYN office in the very near future. Orders: Orders AMB HCG Urine Test Today Z32.01 - Encounter for test, result positive US OB 1T nuc measure 1 Week Z34.90 - Encounter for supervision of normal , unspecified, unspecified trimester Medications: New PNV,calcium 23-plbp-mdrpe acid 27 mg iron- 1 mg ( Vitamins Plus Low Iron) 1 tab PO DAILY 90 tabs 1RF aspirin (Adult Aspirin Regimen) 162 mg (2 x 81 mg) PO DAILY 90 tabs 1RF Coding Level of Care Code Est Pt Level 3 (36391) Diagnoses Early stage of Z34.90 AMA (advanced maternal age) multigravida 35+ O09.529 Obesity, Class II, BMI 35-39.9 E66.9
== END 2023-06-22 10:28 | disposition home or self-care (01) ==
LOC: HO.HWSM 09:03
PROVIDERS: Visit Provider Advanced Practice Midwife
DX: O09.529 Supervision of elderly multigravida, unspecified trimester (principal); E66.9 Obesity, unspecified; Z3A.00 Weeks of gestation of pregnancy not specified; Z32.01 Encounter for pregnancy test, result positive
CPT/HCPCS: 99213

== ENCOUNTER → 2023-06-22 09:03 | Outpatient (BNVA) | payer MEDICAID, SELFPAY | PROVIDERS: Visit Provider Advanced Practice Midwife | DX: O09.521 Supervision of elderly multigravida, first trimester (principal); O99.211 Obesity complicating pregnancy, first trimester; E66.9 Obesity, unspecified; Z3A.01 Less than 8 weeks gestation of pregnancy | CPT/HCPCS: 81025; 99212 ==

== ENCOUNTER 2023-07-11 09:12 | Outpatient (REF) | payer MEDICAID, SELFPAY | END 2023-07-11 09:13 | disposition home or self-care (01) | LOC: HO.HHCL 09:12 | PROVIDERS: Visit Provider Advanced Practice Midwife | DX: Z13.89 Encounter for screening for other disorder (principal) ==